=== PATIENT | female | born 1970 | race Caucasian/White ===

== ENCOUNTER → 2019-11-19 11:42 | Outpatient (CLI) | payer OTHER, SELFPAY ==
[2019-11-19 12:33] LABS: Add Manual Diff / Slide Review NO; Basophils Absolute Auto 100 /uL (0-100); Basophils Percent Auto 1.4 % (0-2); Eosinophils Absolute Auto 100 /uL (0-450); Eosinophils Percent Auto 1.5 % (2-4); Hematocrit 39.7 % (36-46); Lymphocytes Absolute Auto 2500 /uL (1100-4500); Lymphocytes Percent Auto 28.9 % (25-40); Mean Corpuscular HGB Conc 35.3 % (30-36); Mean Corpuscular Hemoglobin 34.2 PG (26-34); Mean Corpuscular Volume 96.9 fL (80-100); Monocytes Absolute Auto 500 /uL (0-900); Monocytes Percent Auto 6.2 % (3-14); Neutrophils Absolute Auto 5300 /uL (1500-7000); Platelet Count 341 X10^3/uL (150-400); Red Blood Cell Count 4.09 X10^6/uL (4.0-5.2); Red Cell Distribution Width 12.8 % (11.6-14.8); White Blood Cell Count 8.5 X10^3/uL (4.5-11.0)
[2019-11-19 13:35] LABS: BUN Creatinine Ratio 20.4 (6-22); Blood Urea Nitrogen 11 mg/dL (7-17); Carbon Dioxide 29 mmol/L (22-32); Chloride 105 mmol/L (98-107); Estimated Glomerular Filt Rate > 60.0 mL/min (>60); Glucose 98 mg/dL (70-100); HEMOLYSIS < 15 (0-50); Potassium 4.3 mmol/L (3.4-5.1); Sodium 138 mmol/L (137-145)
== END ==
PROVIDERS: Referring Provider Orthopaedic Surgery Orthopaedic Surgery of the Spine; Visit Provider Orthopaedic Surgery Orthopaedic Surgery of the Spine
DX: Z01.818 Encounter for other preprocedural examination (principal); Z01.812 Encounter for preprocedural laboratory examination
CPT/HCPCS: 36415; 80048; 85025; 93005

== ENCOUNTER → 2019-11-25 13:10 | Outpatient (CLI) | payer OTHER, SELFPAY ==
[2019-11-26 14:48] LABS: COVID19 Sendout Not Detected (Not Detect)
== END ==
PROVIDERS: Visit Provider Physician Assistant
DX: Z01.812 Encounter for preprocedural laboratory examination (principal)
CPT/HCPCS: 87635

== ENCOUNTER 2019-11-28 11:07 | Inpatient (IN) | payer OTHER, SELFPAY ==
[2019-11-21 09:00] VITALS: BMI 25.4
[2019-11-28] VITALS (17 sets, daily range): BP systolic 104–130; BP diastolic 51–98; PULSE 81–109; RESP 11–20; TEMP 36.3–37.3; O2SAT 93–100; BMI 25.4
--- NOTE | 2019-11-28 | DI.RAD.S_ITS ---
PROCEDURE: XR LUMBAR SPINE 2-3V INDICATIONS: L4-5-S1 TLIF TECHNIQUE: 2 limited intraoperative fluoroscopic views of the lumbar spine were acquired. COMPARISON: None. FINDINGS: Bones: There postoperative changes from posterior spinal fusion of L4 through S1. Bilateral pedicular screws and intramedullary rods appear intact without acute hardware complication. Interbody disc spacers are noted at L4-5 and L5-S1. IMPRESSION: Intraoperative fluoroscopic support demonstrates postoperative changes from posterior spinal fusion of L4 through S1. Dictated by: Minesh Garland M.D. on 11/28/2019 at 16:49 Approved by: Minesh Garland M.D. on 11/28/2019 at 16:51
--- NOTE | 2019-11-28 11:27 | PM.PREOP ---
Pre-operative Note COVID-19 COVID-19 status: Negative Result date/Date tested (Pos, Neg/Pending): 11/26/19 Interval Note History & Physical reviewed/Exam performed by Physician: Yes Changes to H&P: No
[2019-11-28] MEDS: LACTATED RINGERS 1,000 ML 42 ML IV ×2 (11:42→15:26)
[2019-11-28] MEDS: CEFAZOLIN 2 GM/100 ML FROZ.PIGGY IV ×2 (12:08→20:12)
--- NOTE | 2019-11-28 12:41 | SUR.OPER ---
Prone on spine table, head in foam head support, padded chest and pelvic supports, gel pad at knees, lower legs supported by pillows; nipples, genitalia and toes free of pressure, arms secured on foam padded arm boards at <90 degrees abduction. Tape over blanket at thigh secured to table.
[2019-11-28] MEDS: BUPIVACAINE 0.25% W/ EPI 30 ML VIAL INJ (12:48)
[2019-11-28] MEDS: BUPIVACAINE LIPOSOME 266 MG/20 ML VIAL INJ (12:48)
--- NOTE | 2019-11-28 15:35 | P.OP_ITS ---
Operative Date/Time/Diagnoses Date of procedure: 11/28/19 Time of procedure: 12:35 Pre-op diagnosis: 1. L4-5, L5-S1 spondylolisthesis 2. L4-5, L5-S1 spinal stenosis with radiculopathy Post-op diagnosis: same Procedure & Clinicians Procedure: 1. L4-5, L5-S1 Postero-lateral and posterior interbody fusion 2. L4-5, L5-S1 interbody cage placement. 3. L4-5, L5-S1 decompressive laminectomy with bilateral facetecomies 4. L4-5, L5-S1 Posterior segmental instrumentation 5. [place] of bone marrow from iliac crest 6. Utilization of microsurgical technique and operating microscope Same procedure as scheduled: Yes Indications: Patient has been having chronic back pain and worsening lumbar radiculopathy. Patient failed multiple conservative management with worsening pain weakness and numbness in her lower extremity. Patient has been having difficulty performing activity of daily living. After discussing risks benefits of treatment options, patient elected proceed with surgery. Surgeon: Ana Maria Caballero Registered Respiratory Technician: Eliz Wright Click Yes if Unassisted: No Anesthesia Type: General Operative Notes Closure Type: primary Specimen(s): none sent Prosthetic devices, grafts, tissues, transplants, or devices: Globus revolve screws, Rise cages Applied: catheter Estimated Blood Loss (mL): 150 Blood products transfused: none Procedure in detail: Patient was seen in the preoperative area. Risks and benefits of the surgery was discussed with the patient. Informed consent was obtained from the patient and placed in the chart. Surgical site was marked. Patient was taken to the operative room. General anesthesia was administered. Prophylactic antibiotic was given to the patient less than 30 min before the incision was made. Patient was placed into a prone position on the Kilo table. Patient's back was then prepped and draped in the sterile fashion. Time- out was performed at this time. Using AP and lateral C-arm imaging the interval between L4-S1 was identified and marked on patient's back. A 2 inch incision 2 in from midline was made on the left side first. The fascia was incised in line with skin incision. Globus MARS retractors was placed inside the incision and docked onto the L4 and L5 lamina. Using microsurgical technique and operating microscope, a L4 and L5 laminectomy and L4-5 L5-S1 facetectomy was performed using a Kerrison rongeur. During the process of decompression more than 75% of bilateral L4-5 L5-S1 facets were removed in order to decompress the spinal canal and the lateral recess. The L4- 5 L5-S1 level was grossly unstable after the decompression was completed and requiring the fusion procedure. The disc space at L4-5, L5-S1 was identified. And a total diskectomy was performed at L4-5, L5-S1 level. The endplates were decorticated using a rasp and shaver. The total diskectomy and decortication was performed at L4-5, L5-S1 level in order to to accomplish a L4-5, L5-S1 fusion. The local bone from the laminectomy and facetectomy was saved for local bone grafting. After the total diskectomy and decortication was completed, Trifecta bone graft material was combined with local bone that was harvested earlier. At this time, a separate skin is incision was made over the iliac crest. A Jamshidi needle was inserted into the iliac crest through a separate skin incision. 5 cc of bone marrow aspiration was obtained through the separate skin incision using a Jamshidi needle from the iliac crest. The bone marrow aspiration was combined with local bone and the Trifecta bone grafting material. The bone grafting material was placed into the L4-5, L5-S1 interbody space along with two cages, one expandable cage at each level. The cages were expanded to their maximum height using the torque limiting screwdriver. At this time a mirror image incision was made on the right side. The fascia was incised in line with the skin incision. Globus MARS retractor was inserted and docked onto the L4-5, L5-S1 posterolateral gutter. Using the power drill, posterior-lateral decortication was performed at L4-5, L5-S1 level until bleeding cortical bone was identified. The remaining bone grafting material was placed into the L4-5 L5-S1 posterior lateral gutter he order to accomplish posterolateral fusion at the L4-5 L5-S1 levels. Using the double C-arm technique, pedicle screws were placed into the L4, L5, S1 pedicles bilaterally. This was done by placing the Jamshidi needle into the pedicles, then placing the guidewires over the Jamshidi needle, and finally placing the cannulated screws over the guidewires bilaterally. After the pedicle screws were placed, 2 titanium rods was locked into the heads of the pedicle screws using locking caps and torque limiting screwdriver. Total 6 pedicles screws were placed. Thready reducers were used to reduce the patient's spondylolisthesis. Appropriate reduction was accomplished and maintained using the hardware placed in patient's L4-S1 vertebrae. After all the hardware was placed, and confirmed with AP and lateral C-arm imaging, the wound was then irrigated with sterile normal saline and packed with Ray-Ashley gauze for 3 min to accomplish hemostasis. After the gauze was removed the deep fascia was closed with #1 Vicryl suture. The subcutaneous layer was closed with 2-0 Vicryl. The skin was closed with skin tremayne. Patient tolerated the procedure well. There were no complications. Complications: none Post-operative Condition: stable Disposition: PACU Plan for aftercare: Admit to inpatient hospital
--- NOTE | 2019-11-28 16:03 | SUR.PHASEI ---
Pt sleeping soundly, resp even and regular, skin warm and dry, only needed a jaw thrust briefly upon arrival, (removed pillow and repositioned head). Report called to live willis RN.
[2019-11-28] MEDS: HYDROMORPHONE 2 MG INJ IV ×2 (16:16→16:28)
[2019-11-28] MEDS: LORazepam 2 MG/ML INJ 0.5 MG IV (16:23)
[2019-11-28] MEDS: OXYCODONE/ACETAMINOPHEN 5/325 TABLET 1 TAB PO (16:32)
--- NOTE | 2019-11-28 16:37 | SUR.PHASEI ---
pt previously reported that the pain level had not changed, she is currently sleeping. See FLACC
--- NOTE | 2019-11-28 16:51 | SUR.PHASEI ---
dozing intermittently, denies that pain had improved. however, she immediately returned to sleep. VSS, resp even and regular. no indicators of pain while sleeping.
--- NOTE | 2019-11-28 17:19 | SUR.PHASEI ---
1701 to room 216, bed down and locked, call light within reach. Clothing bag to the room. VSS. Pt sitting up, very drowsy. States that she is having cramping in the left leg. AC RN will medicate. Resp unlabored. pt has one round pink area on the anterior lateral chest wall - pt states that it was from a cyst. Report updated including pain, medications, and i&O
[2019-11-28] MEDS: hydrOXYzine pamoate 25 MG CAPSULE PO ×2 (17:23→21:25)
--- NOTE | 2019-11-28 18:02 | PC.NURSE ---
Addendum entered by Rebecca Estes R.N. 11/28/19 22:46: Reports pain to back now 4/10. No longer c/o hip pain. Resting quietly in recliner with eyes closed. No signs of distress or discomfort. Addendum entered by Rebecca Estes R.N. 11/28/19 21:21: With pt's stated allergy to cephalexin, ran cefazolin @ 100 cc/hr versus 200 cc/hr. No difficulty or adverse reaction reported or observed. Addendum entered by Rebecca Estes R.N. 11/28/19 19:49: Up in recliner taking diet slowly. Spouse is present and retrieves pt's phone from car to bring into hospital for pt's use. Pt continues to rate pain 9/10, but is quite drowsy. Instructed and reinforced to patient and pt's spouse pt is not to attempt to move from recliner unaided. Both parties verbalize agreement and understanding. Addendum entered by Rebecca Estes R.N. 11/28/19 19:21: Pt continues to be very restless in bed. States hasn't slept in bed in 20 years. Requests assistance into recliner and PEDIATRIC PSYCHOLOGIST sees to this activity. Addendum entered by Rebecca Estes R.N. 11/28/19 18:47: More wakeful and verbally interactive, but restless. C/o sciatic pain and BL hip pain. States gabapentin helps manage this. Allowed to dangle with assistance and reinforced log rolling in this patient. Oxycodone and tylenol administered. Original Note: Pt to room 216 from PACU drowsy, but rousable. C/o left hip/lower back pain 9/10, but pt has difficulty remaining awake and conversant during admission assessment. Assisted with multiple position changes and pt observes log rolling technique well. BL foot pumps in place. Denies nausea. Admits to full sensation to BL LE's. Able to push and pull with feet BL. Vistaril 25 mg provided to c/o sciatic nerve pain left buttock. Continuous pulse oximeter in place. Room air 97%.
[2019-11-28] MEDS: OXYCODONE IR 10 MG TABLET PO ×2 (18:41→21:25)
[2019-11-28] MEDS: ACETAMINOPHEN 325 MG TABLET 650 MG PO (18:41)
[2019-11-28] MEDS: SODIUM CHLORIDE 0.9% 1,000 ML 100 ML IV (18:42)
[2019-11-28] MEDS: GABAPENTIN 300 MG CAPSULE PO (19:07)
[2019-11-28] MEDS: SENNOSIDES 8.6 MG TABLET 17.2 MG PO (20:14)
[2019-11-28] MEDS: BUSPIRONE 5 MG TABLET 10 MG PO (20:14)
[2019-11-28] MEDS: DOCUSATE 100 MG CAPSULE PO (20:14)
[2019-11-29] VITALS: BP 110/58; PULSE 88; RESP 12; TEMP 36.4; O2SAT 97
[2019-11-29] MEDS: CEFAZOLIN 2 GM/100 ML FROZ.PIGGY IV (03:44)
[2019-11-29 04:11] VITALS: BP 116/64; PULSE 83; RESP 18; TEMP 36.4; O2SAT 98
[2019-11-29] MEDS: hydrOXYzine pamoate 25 MG CAPSULE PO ×2 (04:15→10:09)
[2019-11-29] MEDS: ACETAMINOPHEN 325 MG TABLET 650 MG PO ×2 (04:15→10:09)
[2019-11-29 06:06] LABS: Hematocrit 33.1 % (36-46); Hemoglobin 11.9 g/dL (12.0-16.0)
--- NOTE | 2019-11-29 08:06 | PM.PNPO.1 ---
Subjective Subjective Date Patient Seen: 11/29/19 Time Patient Seen: 08:06 Interval history: POD #1 status post L4-S1 TLIF with Dr. Caballero. Patient's pain is adequately controlled with oxycodone, and Vistaril. She complaints of muscle spasms in the back. She still has a Bermeo catheter in place. She has not been up with physical therapy. Exam Vital Signs (past 8 hours): - 11/29/19 04:11 Temperature 97.6 F Pulse Rate 83 Respiratory Rate 18 Blood Pressure 116/64 Pulse Oximetry 98 Oxygen Delivery Method Room Air Oxygen Flow Rate 0 Narrative Exam Narrative: Patient is sitting at bedside chair no acute distress. She is alert orient x3. Calves are soft, compressible, nontender bilaterally. SCDs on and functioning. She is able to actively dorsiflex and plantar flex. Dressing on back is CDI. Objective Labs Result Diagrams: 11/29/19 05:35 Labs: Laboratory Results - last 24 hr 11/29/19 05:35 Hgb 11.9 L Hct 33.1 L Assessment & Plan Post-op Postoperative Procedures: Procedures Operation Date: 11/28/19 12:45 Actual Procedures Side Surgeon p L4-5,L5-S1 TLIF w/ Posterior Instrumentation Not Applicable Ana Maria Caballero MD patient will mobilize with physical therapy today. Continue current pain control. Remove Bermeo catheter today. Applied new dressing prior to discharge. If she is mobilizing safely with adequate pain control, and voiding she can go home today. Quality VTE Deep Vein Thrombosis/Pulmonary Embolism Present on Admission: No
[2019-11-29] MEDS: SERTRALINE 50 MG TABLET 150 MG PO (08:17)
[2019-11-29] MEDS: BUSPIRONE 5 MG TABLET 10 MG PO (08:17)
[2019-11-29] MEDS: DOCUSATE 100 MG CAPSULE PO (08:17)
[2019-11-29] MEDS: GABAPENTIN 300 MG CAPSULE PO (08:17)
[2019-11-29] MEDS: OXYCODONE IR 10 MG TABLET PO ×2 (08:18→11:25)
[2019-11-29 08:43] VITALS: BP 133/68; PULSE 77; RESP 15; TEMP 36.6; O2SAT 100
--- NOTE | 2019-11-29 09:20 | OT.IP.EVAL ---
Current Diagnoses Spondylolisthesis, lumbar region (11/28/19) Spondylolisthesis, lumbosacral region (11/28/19) Spinal stenosis, lumbar region without neurogenic claudication (11/28/19) Surgery Performed Operation Date: 11/28/19 12:45 Actual Procedures p L4-5,L5-S1 TLIF w/ Posterior Instrumentation(Not Applicable) - Ana Maria Caballero MD Past Medical History (Last Updated 11/21/19 @ 10:45 by Halina Courtney RN) ADHD (Acute) Anxiety (Acute) COPD (chronic obstructive pulmonary disease) (Acute) Depression (Acute) Easy bruisability (Acute) L5 vertebral fracture (Acute 2009) OCD (obsessive compulsive disorder) (Acute) Retinal detachment (Acute) Sciatica (Acute) Spinal stenosis, lumbar region without neurogenic claudication (Acute) Spondylolisthesis of lumbosacral region (Acute) Surgical History (Last Updated 11/21/19 @ 10:45 by Halina Courtney RN) History of colonoscopy (Acute) History of removal of ovarian cyst (Acute) History of surgery (Acute) Hx of appendectomy (Acute) Hx of bilateral cataract extraction (Acute) Hx of dilation and curettage (Acute) Status post epidural steroid injection (Acute) Occupational Therapy Inpatient Evaluation/Re-Eval M1 PT/OT-IP Prior Functional Status Start: 11/29/19 11:22 Freq: NEEDED Status: Active Protocol: Document 11/29/19 11:22 [facility] (Rec: 11/29/19 11:39 [facility] [id number]) Medical Review Prior Functional Status Medical History Reviewed Yes Communication WNL. Pt is an effective verbal communicator. Mobility and Gait Independent without AD. Pt is able to walk ~1 mile before needing to take a break due to back pain. Activities of Daily Living and IADL's Pt has had some difficulty with dressing tasks but remains independent with all ADL's. Pt states has been having more pain during ADl's and has to lean against the wall to assist with balance as she states her left knee gives at times. Prior Functional Level (Other details) Pt reports one fall >1 year ago which occurred while cleaning the bathtub. Social History Household Members spouse,children Living Arrangements Apartment/Condo Number of Floors (Floors) One Floor Number of Stairs To Enter/Railing? 2 6 steps (not in succession) + 1 10 step to enter ground level apartment. FWW fits on all steps. Home Environment Standard Height Toilet,Tub/ Shower Home Equipment Four Wheel Walker Employment Status [employer] Employed Additional Social History Comment Pt sleeps in a recliner. In the bathroom, there is a shelf on the right and the tub on the left which pt can use to help her transfer. Pt works full-time in a grocery store. She lives with her and 25 yo son who will both be available and able to assist at discharge. M2 OT-IP Current Condition Start: 11/29/19 11:22 Freq: Status: Active Protocol: Document 11/29/19 11:22 [facility] (Rec: 11/29/19 11:39 [facility] [id number]) Occupational Therapy Current Condition Current Condition Evaluation Date 11/29/19 Treatment Diagnosis S/P L4-5 LTIF with posterior instr. Diagnosis Onset Date 11/28/19 Post Operative Precautions Lumbar Precautions Log Roll,No Twisting,Limit Bending,Lifting Restriction of 10 lbs,Gait Belt above Incisional Area M3 OT- IP Subjective and Pain Start: 11/29/19 11:22 Freq: Status: Active Protocol: Document 11/29/19 11:22 [facility] (Rec: 11/29/19 11:39 [facility] [id number]) OT- Subjective Occupational Therapy Visit Type Type Initial Evaluation Visit Start Time 08:48 Visit Stop Time 09:20 Total Visit Minutes 32 Occupational Therapy Visit Comments Patient Comments Pt already sitting in the recliner and agreed to do OT eval. Patient/Caregiver Goals TO go home and get back to working in the grocery store. OT Pain Assessment Pain When Pain Assessed During Mobility Pain Present Pain Present Pain Reported Location back Intensity 4 Scale Used Numeric (0 - 10) M4 OT- IP ADL's Start: 11/29/19 11:22 Freq: Status: Active Protocol: Document 11/29/19 11:22 [facility] (Rec: 11/29/19 11:39 [facility] [id number]) OT [id number] Comments OT Self-Feeding Comments NOt at meal time. OT ADL-Grooming General Evaluation Grooming Ability Standby Assistance OT ADL-Oral Care Comments Oral Care Comments Educated pt if needing to rinse her mouth best to spit into a cup or lean at her hip to spit. OT ADL-Dressing General Eval Lower Body Dressing Ability Moderate Assistance Comments OT Dressing Comments Assist for socks. Pt states to wear slippers at home and to have son or assist for LB dressing needs. OT ADL-Toileting Comments OT Toileting Comments Pt able to lean at her hips to comfortable reach underneath to do her hygiene needs. OT ADL-Bathing Comments OT Bathing Comments Pt states to shower at home. Educated pt would be beneficial to have a tub bench versus shower chair at home to use for safety. In addition a HHSP would be helpful as well. M5 OT- IP IADL's Start: 11/29/19 11:22 Freq: Status: Active Protocol: Document 11/29/19 11:22 [facility] (Rec: 11/29/19 11:39 [facility] [id number]) OT-Instrumental Activities of Daily Living Medication Management Medication Management Comments Pt states will double check or have her assist. Money Management Money Management Comments Pt states will double check or have her assist. Meal Preparation Meal Preparation Comments Pt states will double check or have her assist. Voice Network Administrator Voice Network Administrator Caregiver Provides Assist M6 OT- IP Functional Cognition Start: 11/29/19 11:22 Freq: Status: Active Protocol: Document 11/29/19 11:22 [facility] (Rec: 11/29/19 11:39 [facility] [id number]) Cognitive Factors Limiting Selfcare Function Cognitive Ability Level of Alertness Alert Patient Orientation Name,Place,Situation Attention Span Ability Capable of Focused Attention, Capable of Sustained Attention Ability to Follow Commands Able to Follow One Step Commands Safety Awareness Decreased Recall of Precautions,Decreased Ability to Apply Precautions Cognitive Comments Cognitive Assessment Comments Pt needing cues to remember and incorporate back precautions for ADl and mobility needs. Pt tends to want to twist while trying to stand up . OT- Vision and Hearing OT- Hearing Assessment OT- Hearing Assessment WFL OT- Vision Assessment Visual Acuity WFL M7 OT- IP Mobility and Balance Start: 11/29/19 11:22 Freq: Status: Active Protocol: Document 11/29/19 11:22 [facility] (Rec: 11/29/19 11:39 [facility] [id number]) OT-Transfer Assessment Sit to and From Stand Sit to and from Stand Contact Guard Assistance Transfers Transfer Ability Contact Guard Assistance Technique Transfer Destination Chair,Toilet Transfer Technique Stand Step Pivot Devices Transfer Assistive Devices Gait Belt,Front Wheeled Walker Comments Mobility Comments Pt heavy use of BUE to help to stand. CGA with FWW. VC to slow down and take her time . OT- Balance Assessment Sitting Balance and Reactions Static Sitting Balance Ability Normal Dynamic Sitting Balance Ability Normal Standing Balance and Reactions Static Standing Balance Ability Fair M8 OT- IP Objective Assessments Start: 11/29/19 11:22 Freq: Status: Active Protocol: Document 11/29/19 11:22 [facility] (Rec: 11/29/19 11:39 [facility] [id number]) OT Gross Range of Motion Upper Extremity Range of Motion Assessment Within Functional Limits M9 OT- IP Assessment and Plan Start: 11/29/19 11:22 Freq: Status: Active Protocol: Document 11/29/19 11:22 [facility] (Rec: 11/29/19 11:39 [facility] [id number]) OT Summary Assessment and Plan Potential Rehabilitation Potential Good Analytic Complexity at Evaluation Low Summary OT Impairments Pain,Functional Cognition, Functional Mobility,Grooming, Dressing,Toileting,Bathing, Toilet Transfers,Shower Transfers,Activity Tolerance Progress Towards Goals Progressing Toward Goals Assessment Summary Pt low complexity and main barriers are platform steps at home, having difficulty with transition to come to stand as tends to twist a little and now needing assist for dressing and showering needs. Pt has a supportive and son that will be home to assist pt for all needs. Goals Grooming Goal Independent Dressing Goal Independent Toileting Goal Independent Bathing Goal Independent Toilet Transfer Goal Independent Shower Transfer Goal Independent Patient/Caregiver Education Goal Demonstrate Post-Op Precautions,Caregiver Independent Assisting Patient Days to Meet Goals 2 Frequency of Treatment Frequency Of Treatment Once a Day Treatment Plan OT Treatment Plan ADL Training,Functional Cognition Training,Functional Mobility,Patient/Family Education,Discharge Planning Other Treatment Recommendations and Next Shower if still here. Treatment Focus Discharge Recommendations OT Discharge Recommendations Home with Assistance Home Equipment Needs FWW, shower chair versus tub bench, HHSP, BSC Transportation Needs at Discharge Private Vehicle
--- NOTE | 2019-11-29 10:00 | PT.IIE ---
Current Diagnoses Spondylolisthesis, lumbar region (11/28/19) Spondylolisthesis, lumbosacral region (11/28/19) Spinal stenosis, lumbar region without neurogenic claudication (11/28/19) Surgery Performed Operation Date: 11/28/19 12:45 Actual Procedures p L4-5,L5-S1 TLIF w/ Posterior Instrumentation(Not Applicable) - Ana Maria Caballero MD Surgical History (Last Updated 11/21/19 @ 10:45 by Halina Courtney RN) History of colonoscopy (Acute) History of removal of ovarian cyst (Acute) History of surgery (Acute) Hx of appendectomy (Acute) Hx of bilateral cataract extraction (Acute) Hx of dilation and curettage (Acute) Status post epidural steroid injection (Acute) Medical History (Last Updated 11/21/19 @ 10:45 by Halina Courtney RN) ADHD (Acute) Anxiety (Acute) COPD (chronic obstructive pulmonary disease) (Acute) Depression (Acute) Easy bruisability (Acute) L5 vertebral fracture (Acute 2009) OCD (obsessive compulsive disorder) (Acute) Retinal detachment (Acute) Sciatica (Acute) Spinal stenosis, lumbar region without neurogenic claudication (Acute) Spondylolisthesis of lumbosacral region (Acute) Physical Therapy Inpatient Evaluation/Re-Eval M1 PT/OT-IP Prior Functional Status Start: 11/29/19 08:57 Freq: NEEDED Status: Active Protocol: Document 11/29/19 09:50 AW (Rec: 11/29/19 10:53 AW [email or web address]) Medical Review Prior Functional Status Medical History Reviewed Yes Communication WNL. Pt is an effective verbal communicator. Mobility and Gait Independent without AD. Pt is able to walk ~1 mile before needing to take a break due to back pain. Activities of Daily Living and IADL's Pt has had some difficulty with dressing tasks but remains independent with all ADL's. Prior Functional Level (Other details) Pt reports one fall >1 year ago which occurred while cleaning the bathtub. Social History Household Members spouse,children Living Arrangements Apartment/Condo Number of Floors (Floors) One Floor Number of Stairs To Enter/Railing? 2 6 steps (not in succession) + 1 10 step to enter ground level apartment. FWW fits on all steps. Home Environment Standard Height Toilet,Tub/ Shower Home Equipment Four Wheel Walker Employment Status [employer] Employed Additional Social History Comment Pt sleeps in a recliner. In the bathroom, there is a shelf on the right and the tub on the left which pt can use to help her transfer. Pt works full-time in a grocery store. She lives with her and 25 yo son who will both be available and able to assist at discharge. M2 PT-IP Current Condition Start: 11/29/19 08:57 Freq: NEEDED Status: Active Protocol: Document 11/29/19 09:50 AW (Rec: 11/29/19 10:53 AW [email or web address]) Physical Therapy Current Condition Current Condition Evaluation Date 11/29/19 Treatment Diagnosis L4-S1 TLIF; difficulty in walking Onset Date 11/28/19 Precautions Lumbar Precautions Log Roll,No Twisting,Limit Bending,Lifting Restriction of 10 lbs,Gait Belt above Incisional Area M3 PT-IP Subjective Start: 11/29/19 08:57 Freq: NEEDED Status: Active Protocol: Document 11/29/19 09:50 AW (Rec: 11/29/19 10:53 AW [email or web address]) Subjective Physical Therapy Visit Type Type Initial Evaluation Visit Start Time 09:24 Visit Stop Time 09:50 Total Visit Minutes 26 Physical Therapy Visit Comments Patient Comments Pt is willing to participate with PT Patient Goals To return to work within 6 weeks Therapy Pain Assessment Pain When Pain Assessed During Mobility Pain Present Pain Present Pain Reported Location back Intensity 3 Scale Used Numeric (0 - 10) Pain Management Techniques Timing of Activity with Medications M4 PT-IP Mobility and Gait Start: 11/29/19 08:57 Freq: NEEDED Status: Active Protocol: Document 11/29/19 09:50 AW (Rec: 11/29/19 10:53 AW [email or web address]) PT-Transfer Assessment Sit to and From Stand Sit to and from Stand Standby Assistance,Use of Upper Extremities Equipment Transfer Assistive Device Gait Belt,Front Wheeled Walker Orthotic/Prosthetic Devices or Brace: No Transfers Transfer Destination Chair Transfer Technique pt ambulated with FWW Transfer Ability Level of Assist Standby Assistance Comments Mobility Comments Pt was sitting up in the chair as PT arrived. She agreed to mobilize and stood from the chair SBA. She was able to shift weight laterally and to take small marching steps in place with FWW for support. She then ambulated in the halls a total of 300 feet with FWW SBA. On return to the room, pt noted that she will be sleeping in a recliner at home. She refused bed mobility , stating she will not be sleeping in a bed any time soon. Pt transferred back tot he chair SBA. Pt was left with call light, table, and all needs in reach. Gait Assessment Gait Gait Assistance Required: Standby Assistance Distance (Feet) 300 Able to Maintain Weight Bearing Status Yes During Gait Assistive Devices Assistive Device Gait Belt,Front Wheeled Walker Orthotic/Prosthetic Devices or Brace: No Gait Deviations General Gait Pattern Antalgic,Decreased Feet Clearance,Flexed Trunk Factors Limiting Gait Function Factors Limiting Gait Function Decreased Activity Tolerance, Decreased Strength,Limited Range of Motion,Pain Comments Gait Comments Pt ambulated safely with FWW, noting that it was more stable than her 4WW at home. Stair Climbing Assessment Evaluation Level of Assist On Stairs Contact Guard Assistance Devices Stair Climbing Assistive Devices Front Wheel Walker Technique/Endurance Stair Climbing Direction Ascend and Descend Stair Climbing Technique Step to Step Number of Steps Climbed 1 Query Text: Stair Climbing Set # Repetitions (reps) 3 Comments Stair Climbing Comments Pt used FWW to manage platform step x 3 CGA. She agreed FWW is the safest device for this task. PT-Balance Assessment Sitting Balance and Reactions Static Sitting Balance Ability Good Dynamic Sitting Balance Ability Good Standing Balance and Reactions Static Standing Balance Ability Good Dynamic Standing Balance Ability Good Device Used FWW M5 PT-IP Objective Assessments Start: 11/29/19 08:57 Freq: NEEDED Status: Active Protocol: Document 11/29/19 09:50 AW (Rec: 11/29/19 10:53 AW [email or web address]) Orientation Orientation/Cognition Level of Alertness Alert Orientation Name,Day of Week,Place, Situation Language Function Ability No Deficits Noted Safety Awareness Understands Safety Issues Memory Description No Deficits Noted Gross Range of Motion Upper Extremity ROM Assessment Within Functional Limits Lower Extremity ROM Assessment Within Functional Limits Strength Upper Extremity Strength Assessment Within Functional Limits Lower Extremity Strength Assessment Bilaterally Impaired Hip 4-/5 Knee 4/5 Ankle 4+/5 Coordination Assessment Gross Coordination Gross Coordination WNL Sensation Assessment Sensation Sensation Description Pain Muscle Tone Muscle Tone WNL Yes M6 PT-IP Treatment Start: 11/29/19 08:57 Freq: NEEDED Status: Active Protocol: Document 11/29/19 09:50 AW (Rec: 11/29/19 10:53 AW [email or web address]) Physical Therapy Treatment Education Education Provided Precautions,Weight Bearing Status,Post-Op Packet,Safety Other Treatments Other Treatment Performed Provided education on role of PT, plan of care, post-op precautions, and safe use of FWW. M7 PT-IP Assessment and Plan Start: 11/29/19 08:57 Freq: NEEDED Status: Active Protocol: Document 11/29/19 09:50 AW (Rec: 11/29/19 10:53 AW [email or web address]) PT Summary Assessment and Plan Potential Rehabilitation Potential Good Status of Condition at Evaluation Stable Summary Impairments Pain,ROM,Strength,Balance,Bed Mobility,Transfers,Gait, Activity Tolerance Assessment Summary Josefina is a 49 yo woman seen for PT evaluation on POD1 following L4-S1 TLIF. She is independent in all regards at baseline. She lives with supportive family who will be available and able to assist at discharge. On evaluation, pt was familiar with her back precautions and able to perform all mobility with good attention to same. She will need a FWW prior to discharge in order to safely gain access to her home and for household mobility. No other acute PT needs were identified. Pt will be safe to discharge home with assist and FWW once medically cleared. Frequency of Treatment Frequency Of Treatment Discharge Discharge Recommendations PT Discharge Recommendations Home with Assistance Equipment Needed for Home Before FWW Discharge Transportation Needs at Discharge Private Vehicle
[2019-11-29 10:45] VITALS: BP 145/99; PULSE 97; RESP 16; TEMP 37.4; O2SAT 100
--- NOTE | 2019-11-29 12:39 | PC.NURSE ---
Addendum entered by Elroy Osborn R.N. 11/29/19 13:37: 1300 Patient has no further questions or concerns, discharge instructions completed and patient escorted out via wheelchair by [employer]. Discharged to home with . Original Note: Patient able to void post rascon removal. Dressing to back changed to coversite, incisions well approximated with tremayne without redness or drainage noted. Patient cleared by physical therapy and waiting for her walker to be dispensed for home use. at bedside. Discharge instructions and home care handout reviewed with patient and her . Patient states understanding and has no further questions or concerns at this time. IV dc'd intact.
--- NOTE | 2019-11-29 16:40 | CM.IDA ---
Initial DCP Assessment Note Pt is a 49 yo female, resident of [place], now POD#1 from spinal surgery w/ Dr Caballero PCP: Bnia Velez Payer: Tarun Reviewed chart, pt discussed in multidisciplinary rounds this morning. Therapy has cleared pt for return home w/family to assist and pt has planned for home, DC order from Ortho has already been initiated this morning. No needs expected from DC planning team although will remain available in case this changes today. BATSHEVA Landeros
== END 2019-11-29 13:02 | disposition home or self-care (01) | DRG 455 ==
PROVIDERS: Admitting Provider Orthopaedic Surgery Orthopaedic Surgery of the Spine; PCP Student in an Organized Health Care Education/Training Program; Referring Provider Student in an Organized Health Care Education/Training Program; Visit Provider Orthopaedic Surgery Orthopaedic Surgery of the Spine
PROC: 0SG00AJ Fusion of Lumbar Vertebral Joint with Interbody Fusion Device, Posterior Approach, Anterior Column, Open Approach (ICD-10-PCS; principal; 2019-11-28 12:45)
DX: M43.17 Spondylolisthesis, lumbosacral region (principal); M43.16 Spondylolisthesis, lumbar region; M48.061 Spinal stenosis, lumbar region without neurogenic claudication; F17.210 Nicotine dependence, cigarettes, uncomplicated; M48.07 Spinal stenosis, lumbosacral region; M62.830 Muscle spasm of back; Z01.812 Encounter for preprocedural laboratory examination; Z11.59 Encounter for screening for other viral diseases
CPT/HCPCS: 36415; 72100; 76000; 85014; 85018; 87635; 97116; 97161; 97165; 97535; C1776; C9290; J0330; J0690; J1100; J1170; J2060; J2250; J2405; J2704; J3010